=== PATIENT | male | born 1990 | race Caucasian/White ===

== ENCOUNTER → 2020-03-12 09:54 | Outpatient (CLI) | payer OTHER, MEDICAID, SELFPAY ==
--- NOTE | 2020-03-12 | DI.CT.S_ITS ---
PROCEDURE: CT SINUS SCREEN WO CON INDICATIONS: Chronic sinusitis,Headache,Chronic mucoid otitis m TECHNIQUE: Noncontrast 3.0 mm axial images acquired from the frontal sinuses to the mid-sella, with coronal and sagittal reformats. For radiation dose reduction, the following was used: automated exposure control, adjustment of mA and/or kV according to patient size. COMPARISON: None. FINDINGS: Image quality: Excellent. Maxillary Sinuses: No bony remodeling or destruction. The maxillary sinus is clear on the right but contains debris and mucosal thickening on the left best seen inferiorly. Ethmoid Air Cells: No bony remodeling or destruction. Sinuses are clear. Sphenoid Sinuses: No bony remodeling or destruction. Sinuses are clear. Frontal Sinuses: No bony remodeling or destruction. Sinuses are clear. Ostiomeatal Complexes: Ostiomeatal complexes are patent. No Brandon cells. Miscellaneous: Visualized intra-orbital contents are normal. No jenny bullosa or paradoxical turbinate curvature. No nasal septal deviation. IMPRESSION: Left-sided sinusitis, involving the maxillary sinus over its middle and lower thirds. No osseous erosions are found. Elsewhere the study appears normal. Dictated by: Rogelio Augustin M.D. on 03/12/2020 at 12:22 Approved by: Rogelio Augustin M.D. on 03/12/2020 at 12:23
== END ==
PROVIDERS: PCP Otolaryngology; Referring Provider Otolaryngology; Visit Provider Otolaryngology
DX: J32.0 Chronic maxillary sinusitis (principal); R51 Headache; H65.31 Chronic mucoid otitis media, right ear; H72.01 Central perforation of tympanic membrane, right ear
CPT/HCPCS: 70486